=== PATIENT | female | born 1960 | race Caucasian/White ===

== ENCOUNTER 2016-10-17 20:08 | Emergency (ER) | payer MEDICARE ==
[2016-10-17 20:37] VITALS: BP 135/71; PULSE 78; RESP 20; TEMP 98.4
[2016-10-17] MEDS ORDERED: KETOROLAC 60 MG/2 ML VIAL IM STA (22:28)
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
== END 2016-10-17 22:46 | disposition home or self-care (01) ==
LOC: EC 20:08
DX: M54.5 Low back pain (principal); I10 Essential (primary) hypertension; E07.9 Disorder of thyroid, unspecified; G40.909 Epilepsy, unspecified, not intractable, without status epilepticus; Z88.5 Allergy status to narcotic agent; Z88.2 Allergy status to sulfonamides; Z88.8 Allergy status to other drugs, medicaments and biological substances; Z91.030 Bee allergy status; Z91.018 Allergy to other foods; Z91.048 Other nonmedicinal substance allergy status; Z79.899 Other long term (current) drug therapy; W18.39XA Other fall on same level, initial encounter
CPT/HCPCS: 99282; 96372; J1885

== ENCOUNTER 2021-05-22 15:54 | Emergency (ER) | payer OTHER, MEDICARE ==
[2021-05-22 17:24] VITALS: RESP 18
--- NOTE | 2021-05-22 18:15 | XR ---
EXAMINATION TYPE: XR chest 2V DATE OF EXAM: 05/22/2021 COMPARISON: NONE TECHNIQUE: PA and lateral views submitted. HISTORY: Chest pain FINDINGS: The lungs are clear and there is no pneumothorax, pleural effusion, or focal pneumonia. Surgical cl ips right upper quadrant. Tiny granulomas in the left upper lobe appears calcified measuring 1 cm. Hy pertrophic and degenerative changes of the spine heart size normal. No overt failure. Nodules in the left lung appear most likely on the basis of granuloma. IMPRESSION: 1. No acute process. Suspect left-sided lung granuloma. 3 month follow-up CT scan suggested to donavan sharma
[2021-05-22] MEDS ORDERED: LIDOCAINE 5% PATCH TOPICAL STA (20:23)
[2021-05-22] MEDS ORDERED: IBUPROFEN 800 MG TAB PO STA (20:23)
--- NOTE | 2021-05-22 20:47 | XR ---
EXAMINATION TYPE: XR forearm RT DATE OF EXAM: 05/22/2021 COMPARISON: NONE HISTORY: Pain Two views of the forearm demonstrate diffuse osteopenia. Hypertrophic spurring of the proximal ulna a nd radius. Cannot exclude an anterior joint effusion. Question subtle step-off involving the radial h ead. IMPRESSION: 1. Suggestion of a pathologic anterior joint effusion. Spurring involving the proximal ulna and radiu s limits its assessment. Question of a subtle step-off of the radial head correlate with point tender ness to exclude fracture.
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
[2021-05-22 21:35] VITALS: BP 170/75; PULSE 61; TEMP 98.9
== END 2021-05-22 21:35 | disposition home or self-care (01) ==
LOC: EC 15:54
DX: S30.1XXA Contusion of abdominal wall, initial encounter (principal); S50.11XA Contusion of right forearm, initial encounter; R07.81 Pleurodynia; I10 Essential (primary) hypertension; J45.909 Unspecified asthma, uncomplicated; G40.909 Epilepsy, unspecified, not intractable, without status epilepticus; Z79.899 Other long term (current) drug therapy; Z79.890 Hormone replacement therapy; Z79.1 Long term (current) use of non-steroidal anti-inflammatories (NSAID); Z88.2 Allergy status to sulfonamides; Z90.49 Acquired absence of other specified parts of digestive tract; V43.52XA Car driver injured in collision with other type car in traffic accident, initial encounter; Y92.410 Unspecified street and highway as the place of occurrence of the external cause
CPT/HCPCS: 71046; 93005; 99284

== ENCOUNTER → 2021-09-14 | Outpatient (CLI) | payer MEDICARE | END | disposition home or self-care (01) | LOC: LABWHC1 16:18 | PROVIDERS: ATTEND Psychiatry & Neurology Neurology | DX: G40.009 Localization-related (focal) (partial) idiopathic epilepsy and epileptic syndromes with seizures of localized onset, not intractable, without status epilepticus (principal) | CPT/HCPCS: 36415; 80164 ==

== ENCOUNTER → 2021-10-04 | Outpatient (CLI) | payer MEDICARE | END | disposition home or self-care (01) | LOC: LABWHC1 15:17 | PROVIDERS: ATTEND Psychiatry & Neurology Neurology | DX: G40.509 Epileptic seizures related to external causes, not intractable, without status epilepticus (principal) | CPT/HCPCS: 36415; 80164 ==

== ENCOUNTER → 2021-11-07 | Outpatient (CLI) | payer MEDICARE | END | disposition home or self-care (01) | LOC: LABWHC1 16:05 | PROVIDERS: ATTEND Psychiatry & Neurology Neurology | DX: G40.909 Epilepsy, unspecified, not intractable, without status epilepticus (principal) | CPT/HCPCS: 36415; 80164 ==

== ENCOUNTER → 2022-11-29 | Outpatient (CLI) | payer MEDICARE ==
[2022-12-03 07:51] LABS: Arsenic Whole Blood <3 mcg/L (<23); Mercury Whole Blood <5 mcg/L (<OR=10)
== END | disposition home or self-care (01) ==
LOC: LABWHC1 13:49
PROVIDERS: ATTEND Family Medicine
DX: L65.9 Nonscarring hair loss, unspecified (principal); F48.8 Other specified nonpsychotic mental disorders
CPT/HCPCS: 36415; 82175; 82570; 83655; 83825

== ENCOUNTER 2023-07-31 12:22 | Day surgery (SDC) | payer MEDICARE ==
[2023-07-26 14:23] VITALS: BMI 37.5
--- NOTE | 2023-07-31 08:52 | P.GSHP ---
History of Present Illness H&P Date: 07/31/23 CHIEF COMPLAINT: GERD and colon screen HISTORY OF PRESENT ILLNESS: The patient is a 62-year-old female who presents with gastroesophageal reflux disease and need for colon screen. Upper and lower endoscopy were offered for further evaluation and management. PAST MEDICAL HISTORY: Please see list. PAST SURGICAL HISTORY: Please see list. MEDICATIONS: Please see list. ALLERGIES: Please see list. SOCIAL HISTORY: No illicit drug use FAMILY HISTORY: No reports of Crohn disease or ulcerative colitis. REVIEW OF ORGAN SYSTEMS: CONSTITUTIONAL: No reports of fevers or chills. GI: Denies any blood in stools or constipation. PHYSICAL EXAM: VITAL SIGNS: Stable GENERAL: Well-developed pleasant in no acute distress. HEENT: No scleral icterus. Extraocular movements grossly intact. Moist buccal mucosa. NECK: Supple without lymphadenopathy. CHEST: Unlabored respirations. Equal bilateral excursions. CARDIOVASCULAR: Regular rate and rhythm. Distal 2+ pulses. ABDOMEN: Soft, nondistended. MUSCULOSKELETAL: No clubbing, cyanosis, or edema. ASSESSMENT: 1. Gastroesophageal reflux disease 2. Colon screen. PLAN: 1. Recommend proceeding with an upper and lower endoscopy Past Medical History Past Medical History: Asthma, Hypertension, Seizure Disorder, Thyroid Disorder Additional Past Medical History / Comment(s): Raynauds, Has Epilepsy. History of Any Multi-Drug Resistant Organisms: None Reported Past Surgical History: Bariatric Surgery, Cholecystectomy, Hysterectomy, Orthopedic Surgery Additional Past Surgical History / Comment(s): R total knee 2022 Additional Past Anesthesia/Blood Transfusion Reaction / Comment(s): Takes longer to wake up. Smoking Status: Never smoker - Past Family History Mother Additional Family Medical History / Comment(s): Unknown Medications and Allergies Home Medications Medication Instructions Recorded Confirmed Type Ibuprofen [Motrin] 600 mg PO Q6HR PRN #40 day 10/17/16 07/26/23 Rx Levothyroxine Sodium [Levo-T] 175 mcg PO Q12HR 10/17/16 07/26/23 History Topiramate [Topamax] 50 mg PO BID 10/17/16 07/26/23 History Cyanocobalamin [Vitamin B-12] 500 mcg PO DAILY 07/26/23 07/26/23 History Divalproex ER [Depakote ER] 500 mg PO BID 07/26/23 07/26/23 History Eye Vitamins(Unknown Dose) 2 drops BOTH EYES DAILY 07/26/23 07/26/23 History amLODIPine BESYLATE 2.5 mg PO DAILY 07/26/23 07/26/23 History tiZANidine [Zanaflex] 4 mg PO Q8HR 07/26/23 07/26/23 History Allergies Allergy/AdvReac Type Severity Reaction Status Date / Time atropine Allergy Unknown Verified 07/26/23 11:58 bee pollen Allergy Anaphylaxis Verified 07/26/23 11:58 cat dander Allergy Rash/Hives Verified 07/26/23 11:58 codeine Allergy Confusion Verified 07/26/23 11:58 Fish Containing Products Allergy Anaphylaxis Verified 07/26/23 11:59 [Fish] prednisone Allergy Swelling Verified 07/26/23 11:58 Sulfa (Sulfonamide Allergy Dyspnea Verified 07/26/23 11:58 Antibiotics) tree nut [Nut] Allergy Anaphylaxis Verified 07/26/23 11:58 lidocaine AdvReac Unknown Verified 07/26/23 11:58
[~2023-07-31 12:22] MED LIST: LACTATED RINGERS 1,000 ML IV SCH
[2023-07-31] MEDS ORDERED: PROPOFOL 10 MG/ML 20 ML VIAL IV ONE (14:30)
[2023-07-31 14:33] VITALS: RESP 16; TEMP 97.9
--- NOTE | 2023-07-31 14:47 | P.PCN ---
Date of Procedure: 07/31/23 Description of Procedure: PREOPERATIVE DIAGNOSIS: Dysphagia Gastroesophageal reflux disease. Status post sleeve gastrectomy. POSTOPERATIVE DIAGNOSIS: Gastroesophageal reflux disease with erosive esophagitis Status post sleeve gastrectomy. Diaphragmatic hiatal hernia without obstruction. Chronic superficial gastritis. OPERATION: Esophagogastroduodenoscopy with cold forceps biopsies along the antrum, esophagus, duodenum. SURGEON: Page Jerome MD ANESTHESIA: MAC. INDICATIONS: The patient is a 62-year-old female who presents with dysphagia, gastroesophageal reflux disease and a history of sleeve gastrectomy.She is over 5 years out from her bariatric procedure. Benefits and risks of the procedure were described. Informed consent was obtained. DESCRIPTION: The patient was brought into the endoscopy suite and laid in the left lateral decubitus position. An Olympus gastroscope was passed along the posterior oropharynx down to the distal esophagus where the squamocolumnar junction was at 37 centimeters from the incisors remarkable for chronic erosive esophagitis, LA grade A without ulceration. The stomach was entered where she had a 6-cm hiatal hernia with a diaphragmatic hiatus found at 43 cm. The sleeve reservoir moderately large allowing easy retroflexion of the scope to view the lower esophageal valve. Chronic gastritis albeit mild was found along the antrum with cold biopsies obtained. The first through third portion of the duodenum was examined. The scope again had easily retroflexed along the antrum. The stomach was desufflated. The patient tolerated the procedure well. FINDINGS: No acute ulceration found along her sleeve. Corkscrewing sleeve gastrectomy. Squamocolumnar junction at 37 cm from the incisors. Diaphragmatic hiatus at 39 cm with stenosis. Moderate large gastric reservoir with prior history of sleeve gastrectomy allowing easy retroflexion of the gastroscope to view the lower esophageal valve. Hiatal hernia 2 cm, fixed. LA grade C erosive esophagitis. Biopsies obtained. Biopsies obtained duodenal Chronic gastritis with biopsies obtained RECOMMENDATIONS: Upper endoscopy as needed.
--- NOTE | 2023-07-31 15:08 | P.PCN ---
Date of Procedure: 07/31/23 Description of Procedure: PREOPERATIVE DIAGNOSIS: Colonoscopy screening POSTOPERATIVE DIAGNOSIS: Tubular adenoma transverse colon Sigmoid diverticulosis OPERATION: Colonoscopy to the ileocecal valve and appendiceal orifice, cecum Colonoscopy with hot snare polypectomy SURGEON: Page Jerome MD. ANESTHESIA: MAC. INDICATIONS: The patient is an 62-year-old female who presents for colonoscopy screening. No prior colonoscopy recently. Benefits and risks were described and informed consent was obtained. DESCRIPTION OF PROCEDURE: The patient had undergone Sutab prep. The patient had been brought into the operating room and laid in the left lateral decubitus position. After adequate intravenous sedation, the rectum was examined with 2% lidocaine jelly. The prostate was unremarkable. External hemorrhoids were encountered. The rectal tone was within normal limits. No lesions were palpated in the rectal vault. An Olympus colonoscope was advanced until the cecum, ileocecal valve and appendiceal orifice were clearly viewed. The prep was excellent. Moderate sigmoid diverticulosis was encountered. Colonic polyps were found and removed. No evidence of focal colitis was found. Retroflexion of the scope demonstrated grade 2 internal hemorrhoids without active bleeding or inflammation. The colon was desufflated. The patient had tolerated the procedure well. Withdrawal time was over 6 minutes. FINDINGS: Aronchick preparation quality scale 1 (1-5) Internal hemorrhoids, grade 2 External hemorrhoids, grade 2. No arteriovenous malformations. Sigmoid diverticulosis, moderate Removal of 1 polyps: - Snare polypectomy proximal transverse colon, 6 mm, adenoma No focal colitis. RECOMMENDATIONS: Repeat colonoscopy 3 years, 2025 Plan - Discharge Summary Discharge Rx Participant: No New Discharge Prescriptions: Continue Levothyroxine Sodium [Levo-T] 175 mcg PO Q12HR Topiramate [Topamax] 50 mg PO BID Ibuprofen [Motrin] 600 mg PO Q6HR PRN #40 day PRN Reason: Pain tiZANidine [Zanaflex] 4 mg PO Q8HR amLODIPine BESYLATE 2.5 mg PO DAILY Cyanocobalamin [Vitamin B-12] 500 mcg PO DAILY Eye Vitamins(Unknown Dose) 2 drops BOTH EYES DAILY Divalproex ER [Depakote ER] 500 mg PO BID Discharge Medication List Ibuprofen [Motrin] 600 mg PO Q6HR PRN #40 day 10/17/16 [Rx] Levothyroxine Sodium [Levo-T] 175 mcg PO Q12HR 10/17/16 [History] Topiramate [Topamax] 50 mg PO BID 10/17/16 [History] Cyanocobalamin [Vitamin B-12] 500 mcg PO DAILY 07/26/23 [History] Divalproex ER [Depakote ER] 500 mg PO BID 07/26/23 [History] Eye Vitamins(Unknown Dose) 2 drops BOTH EYES DAILY 07/26/23 [History] amLODIPine BESYLATE 2.5 mg PO DAILY 07/26/23 [History] tiZANidine [Zanaflex] 4 mg PO Q8HR 07/26/23 [History] Follow up Appointment(s)/Referral(s): Page Jerome MD [STAFF PHYSICIAN] - 08/13/23 2:30 pm Patient Instructions/Handouts: Colorectal Polyps (GEN), Diverticulosis Diet (GEN), Diverticulosis (GEN), Hiatal Hernia (DC) Activity/Diet/Wound Care/Special Instructions: Colonoscopy 3 years, 2025 Discharge Disposition: HOME SELF-CARE
[2023-07-31 15:22] VITALS: BP 151/81; PULSE 71
== END 2023-07-31 16:04 | disposition home or self-care (01) ==
LOC: ORWHC2ENDO 12:22
PROVIDERS: ATTEND Surgery Plastic and Reconstructive Surgery
DX: Z12.11 Encounter for screening for malignant neoplasm of colon (principal); K29.30 Chronic superficial gastritis without bleeding; K21.00 Gastro-esophageal reflux disease with esophagitis, without bleeding; K63.5 Polyp of colon; K44.9 Diaphragmatic hernia without obstruction or gangrene; K57.30 Diverticulosis of large intestine without perforation or abscess without bleeding; K64.1 Second degree hemorrhoids; K64.4 Residual hemorrhoidal skin tags; J45.909 Unspecified asthma, uncomplicated; I10 Essential (primary) hypertension; G40.909 Epilepsy, unspecified, not intractable, without status epilepticus; E03.9 Hypothyroidism, unspecified; I73.00 Raynaud's syndrome without gangrene; Z90.49 Acquired absence of other specified parts of digestive tract; Z90.710 Acquired absence of both cervix and uterus; Z90.3 Acquired absence of stomach [part of]; Z98.890 Other specified postprocedural states; Z79.890 Hormone replacement therapy; Z79.899 Other long term (current) drug therapy; Z91.030 Bee allergy status; Z88.5 Allergy status to narcotic agent; Z98.84 Bariatric surgery status; Z88.8 Allergy status to other drugs, medicaments and biological substances; Z88.2 Allergy status to sulfonamides
CPT/HCPCS: 88305; 45385; 43239; J2704

== ENCOUNTER → 2023-09-24 | Outpatient (CLI) | payer MEDICARE ==
[2023-09-24 17:15] LABS: INR 0.9 (<1.2); Prothrombin Time 10.5 sec (10.0-12.5)
[2023-09-25 02:15] LABS: HCT 41.3 % (37.2-46.3); HGB 12.7 g/dL (12.0-15.0); MCH 30.6 pg (27.0-32.0); MCHC 30.8 g/dL (32.0-37.0); MCV 99.5 FL (80.0-97.0); Mean Platelet Volume 12.3 FL (9.5-12.2); NRBC Per 100 WBC 0 X 10*3/uL (0.00-0.01); Platelet Count 185 X 10*3/uL (140-440); RBC 4.15 X 10*6/uL (4.10-5.20); RDW 15.7 % (11.5-14.5); WBC 4.82 X 10*3/uL (4.50-10.00)
[2023-09-25 02:43] LABS: % Iron Saturation 29.87 (12.00-45.00); ALT 11 U/L (8-44); AST 16 U/L (13-35); Albumin 4.2 g/dL (3.8-4.9); Albumin/Globulin Ratio 1.91 Ratio (1.60-3.17); Alkaline Phosphatase 65 U/L (41-126); BUN/Creat Ratio 29.67 Ratio (12.00-20.00); Blood Urea Nitrogen 26.7 mg/dL (9.0-27.0); Calcium 9.4 mg/dL (8.7-10.3); Chloride 108 mmol/L (96-109); Chol/HDL Ratio 2.66 Ratio; Globulin 2.2 g/dL (1.6-3.3); Glucose 81 mg/dL (70-110); Iron 92 UG/DL (50-170); LDL Cholesterol,Calculated 178.1 mg/dL (0.0-131.0); Magnesium 2.2 mg/dL (1.5-2.4); Phosphorus 3.6 mg/dL (2.4-5.1); Potassium 4.4 mmol/L (3.5-5.5); Sodium 142 mmol/L (135-145); Total Bilirubin 0.3 mg/dL (0.3-1.2); Total Iron Binding Capacity 308 UG/DL (228-460); Total Protein 6.4 g/dL (6.2-8.2); VLDL Calculation 15.88 mg/dL (5.00-40.00)
[2023-09-25 03:16] LABS: Vitamin B12 >3600.0 pg/mL (200.0-944.0)
[2023-09-25 04:28] LABS: Prealbumin 19.9 mg/dL (18.0-42.0)
[2023-09-25 13:11] LABS: Zinc, Serum 68 ug/dL (60-130)
[2023-09-26 10:38] LABS: Vitamin A 50 ug/dL (38-106)
[2023-09-26 12:43] LABS: Vit B1(Thiamine) 81 ug/L (38-122)
[2023-09-28 11:34] LABS: Selenium 105 mcg/L (63-160)
--- NOTE | 2023-11-06 17:33 | P.BASOAP ---
Subjective Progress Note Date: 11/06/23 She could not get a stress test. She saw Dr. Gonzalez in the hospital. She has a heart attack. She did not see a group home supervisor. Labs were reviewed. She had traumatic experience with medications. She has epilepsy. High Vit D and Vit B-12 Objective - Labs CBC & Chem 7: 09/24/23 15:40 09/24/23 15:40 Assessment/Plan Plan: Date: Initial Weight: 186.88 kg Initial BMI: Current Weight: Current BMI: Type of Surgery: Total Volume in Band: Previous Volume: Volume Removed: Volume Added: Band Size:
== END | disposition home or self-care (01) ==
LOC: LABWHC1 15:32
PROVIDERS: ATTEND Surgery Plastic and Reconstructive Surgery
DX: E66.01 Morbid (severe) obesity due to excess calories (principal); K91.2 Postsurgical malabsorption, not elsewhere classified; E44.0 Moderate protein-calorie malnutrition; E44.1 Mild protein-calorie malnutrition; E45 Retarded development following protein-calorie malnutrition; E55.9 Vitamin D deficiency, unspecified; K74.1 Hepatic sclerosis; N19 Unspecified kidney failure; T56.894A Toxic effect of other metals, undetermined, initial encounter; K50.90 Crohn's disease, unspecified, without complications; E46 Unspecified protein-calorie malnutrition; D50.8 Other iron deficiency anemias; E89.1 Postprocedural hypoinsulinemia
CPT/HCPCS: 36415; 80053; 80061; 82306; 82525; 82607; 82728; 82746; 83036; 83540; 83550; 83735; 83970; 84100; 84134; 84255; 84425; 84443; 84590; 84630; 85027; 85610; 85730

== ENCOUNTER → 2023-11-06 | Outpatient (CLI) | payer MEDICARE ==
[2023-11-07 11:49] VITALS: BP 143/74; PULSE 66; TEMP 98; BMI 35.2
== END ==
LOC: BARWHC3 14:42
PROVIDERS: ATTEND Surgery Plastic and Reconstructive Surgery
DX: E66.01 Morbid (severe) obesity due to excess calories (principal); Z53.9 Procedure and treatment not carried out, unspecified reason
CPT/HCPCS: 99211